=== PATIENT | female | born 1955 | race Caucasian/White ===

== ENCOUNTER 2019-08-04 11:54 | Day surgery (SDC) | payer BC ==
--- NOTE | 2019-08-04 07:56 | History and Physical - [facility] ---
CHIEF COMPLAINT/HISTORY OF CHIEF COMPLAINT: This patent presents with a history of an intractable lumbar radiculopathy. Due to the failure of therapy, a spinal cord stimulator trial was conducted with 75-85% pain control. Due to the failure of all therapies and the success of the stimulator trial, the patient presents for implantation of a permanent system. PAST MEDICAL HISTORY: Hypertension, sleep apnea, thrombophlebitis, cardiac arrhythmia, and blood disorder. PAST SURGICAL HISTORY: Cervical spine fusion, lumbar spine fusion, pacemaker, defibrillator, and sinus surgery. EMPLOYMENT STATUS: Retired. MEDICATIONS ON ADMISSION: List to be provided. ALLERGIES: TRAZODONE. FAMILY/PSYCHOSOCIAL HISTORY: Social history - Caffeine. Family history - Asthma, coronary artery disease, and hypertension. SYSTEMS REVIEW: The patient is appropriate in no acute distress. The remainder of the systems review is positive for headaches, pacemaker, and defibrillator. PHYSICAL EXAMINATION: Height is 5'7", weight is 200 pounds. No vital signs. HEENT: Within normal limits. LUNGS: Clear. HEART: Rapid and regular. ABDOMEN: Nontender. MUSCULOSKELETAL: Examination of the musculoskeletal system shows the primary pain pattern across the back and into both legs. Ambulation is antalgic. There is mild motor and and sensory weakness into the left lower extremity. NEUROLOGIC: Cranial nerves are intact. IMPRESSION: POST LUMBAR LAMINECTOMY SYNDROME, ICD-10 CODE M96.1 WITH LUMBAR RADICULOPATHY, ICD-10 CODE M54.16 AND M54.17. PLAN: After a successful trial of spinal cord stimulation and the failure of all therapies, she is here for permanent implantation of leads and generator. The procedure will be considered outpatient although an overnight stay will be evaluated. All of the potential risks, side effects, and complications were reviewed and discussed. JOB NUMBER: [id number]
[~2019-08-04 11:54] MED LIST: ACETAMINOPHEN 1,000 MG/100 ML BTL IVPB ONE; CEFAZOLIN 2 Gram 2 GM/50 ML BAG IVPB ONE; FAMOTIDINE 20MG TABLET PO ONE; MECLIZINE 25 MG TABLET PO ONE; METOCLOPRAMIDE 10 MG TABLET PO ONE
[2019-08-04] MEDS ORDERED: PROPOFOL 10 MG/ML VIAL IV ONE (11:55)
[2019-08-04] MEDS ORDERED: FENTANYL PF 100MCG/2ML VIAL IV ONE (11:55)
[2019-08-04] MEDS ORDERED: MIDAZOLAM HCL 2MG/2ML VIAL IV ONE (11:55)
[2019-08-04] MEDS ORDERED: LIDOCAINE 2% MDV (20MG/ML) 20ML VIAL IV ONE (11:55)
[2019-08-04] MEDS ORDERED: 0.9 % SODIUM CHLORIDE 1000ML 1,000 ML IV ONE (12:30)
[2019-08-04] MEDS ORDERED: BUPIVACAINE 0.5% W/EPI MPF 30 ML VIAL SQ ONE (14:29)
[2019-08-04] MEDS ORDERED: LIDOCAINE 1% W/EPI 1:100,000 MDV 20 ML VIAL SQ ONE (14:29)
[2019-08-04] MEDS ORDERED: CEFAZOLIN 1G VIAL IR ONE (14:29)
[2019-08-04] MEDS ORDERED: RINGERS SOLUTION,LACTATED 1,000 ML IV ONE (15:00)
[2019-08-04] MEDS ORDERED: FENTANYL PF 100MCG/2ML VIAL IVP ONE ×2 (15:29→15:42)
[2019-08-04] MEDS ORDERED: OXYCODONE/APAP 10MG-325MG TABLET PO ONE (16:04)
--- NOTE | 2019-08-05 09:12 | Operative Note - [facility] ---
DATE OF SURGERY: 08/04/2019 PREOPERATIVE DIAGNOSIS: LUMBAR RADICULOPATHY, ICD-10 CODE M54.16 AND M54.17. OPERATION: 1. FLUOROSCOPICALLY GUIDED EPIDURAL ACCESS LEFT T11-T12, PLACEMENT OF SPINAL CORD STIMULATOR LEAD 1, [employer] IN[employer] 16, 6-ELECTRODES POSITIONED LEFT OF T6. 2. FLUOROSCOPICALLY GUIDED EPIDURAL ACCESS T12-L1, PLACEMENT OF SPINAL CORD STIMULATOR LEAD 2, [employer], 6-ELECTRODES POSITIONED RIGHT T6. 3. COMPLEX PROGRAMMING OF LEAD 1 OVER TWENTY MINUTES FOLLOWED BY COMPLEX PROGRAMMING OF LEAD 2 OVER TWENTY MINUTES. 4. INCISION, SUBCUTANEOUS DISSECTION, ANCHORING OF LEAD 1 AND LEAD 2 TO THE SUPRASPINOUS FASCIA WITH A [employer] LOCKING ANCHOR NONABSORBABLE SUTURE. 5. INCISION, SUBCUTANEOUS DISSECTION, CREATION OF SUBCUTANEOUS POUCH AT RIGHT POSTERIOR GLUTEAL MARGIN, PLACEMENT OF GENERATOR [employer] PROGRAMMABLE RECHARGEABLE WAVEWRITER. 6. TUNNELLING BETWEEN LEAD POUCH INTO GENERATOR POUCH, EACH LEAD INTERFACED WITH GENERATOR. 7. SECURING GENERATOR TO THE POUCH WITH NONABSORBABLE SUTURE, PLACEMENT OF LEADS INTO THEIR OWN POUCH AND CLOSURE OF BOTH INCISIONS USING STRATAFIX SUTURE 2-0 FASCIA AND 3-0 SKIN. DERMABOND CLOSURE. 8. COMPLEX RECOVERY ROOM PROGRAMMING INTERNAL GENERATOR HOME USE TWO STIMULATORS RECOVERY ROOM TWENTY MINUTES. SURGEON: Odin Urbina D.O. ANESTHESIA: Local sedation. ANESTHESIA PROVIDER: PRASAD Rosario CRNA INDICATION: This patient presents with a history of intractable lumbar radiculopathy. Due to the failure of therapies, a spinal cord stimulator trial was conducted with 75+% pain control. Due to the failure of all therapies and the success of the trial, the patient presents today for implantation of a permanent system. PROCEDURE: Intravenous line, vital sign monitoring, IV sedation, prepped and draped, sterile technique. Under imaging the epidural interspace from the left at T11-T12 and T12-L1 are both identified and marked. The skin was infiltrated using a curved access Epimed needles with loss of resistance the space was accessed at each level, atraumatic. No blood. No CSF. At T11-T12 spinal cord stimulator Lead 1, a [employer] Infinion 16, 6-electrodes was positioned left of T6. The access for the right spinal cord stimulator Lead 2, [employer] In[employer]ion 16, 6-electrodes was positioned right at T6. With the patient awake complex programming of each of the leads over twenty minutes left and twenty minutes right was then performed establishing stimulation pain control through all of the appropriate areas/ She indicated we had control of her primary regions of pain. She was given the option to implant, continue to program, or remove and she opted to implant. She was then re-sedated. The full sterile field was maintained and using local for infiltration, the skin above and below the needles was infiltrated, an incision was made and subcutaneous dissection was conducted to the supraspinous fascia. Each of the leads was then anchored to the supraspinous fascia with a [employer] locking anchor nonabsorbable suture. At the right posterior gluteal margin at a site picked by the patient for the generator the skin was infiltrated, an incision made and subcutaneous dissection was conducted to form a pouch of suitable size and depth for the generator, a [employer] programmable rechargeable WaveWriter. A tunnelling tool was used to carry the leads into the generator pouch and then each lead was interfaced with the generator. Antibiotic irrigation, Bovie for hemostasis at both sites. The generator was placed into its pouch and secured to the posterior fascia with nonabsorbable suture. The leads were placed in their own pouch and then both incisions were closed using Stratafix suture 2-0 fascia and 3-0 skin. A Dermabond closure was then used to approximate both wounds. She was transported to the Recovery Room stable. There are no side effects from the procedure or sedation. When fully awake and alert, complex programming of the internal generator over twenty minutes in the Recovery Room was performed re-establishing stimulation and pain control of all of the appropriate areas. The patient and were instructed on the use of the system, provided information on error messaging and then prepared for discharge. DISCHARGE INSTRUCTIONS: 1. The sites are to remain clean and dry. No showering or bathing in any way that would disrupt dressings. If it happens contact the clinic. 2. Standard medications are resumed including the antibiotic Levaquin 500 mg once a day for fourteen days. 3. Office to contact the patient in 12-24 hours and set up a time in 7-10 days for us to evaluate the sites, until then keep activities low. She will start her blood thinners as per cardiology's protocol. JOB NUMBER: [id number] [facility]
--- NOTE | 2019-08-05 09:20 | RADIOLOGY REPORT ---
EXAMINATION: Thoracolumbar Spine Single View EXAM DATE: 08/04/2019 3:32 PM TECHNIQUE: Frontal view. INDICATION: S/P SCS IMPLANT LEADS AND GENERATOR COMPARISON: No relevant comparison studies ENCOUNTER: Initial FINDINGS/IMPRESSION: Spinal cord stimulator with electrode leads projecting over T7-T9 and the last rib is labeled as the 12th. Right lower quadrant generator. No appreciable kinking or interruptions along the radiopaque co urse of the tubing. IVC filter. Lower lumbar hardware. Dictated by: Shanna Ford MD on 08/05/2019 9:16 AM. .
== END 2019-08-04 16:35 | disposition home or self-care (01) ==
LOC: SUR 11:54
PROVIDERS: ATTEND Pain Medicine Interventional Pain Medicine
DX: M54.16 Radiculopathy, lumbar region (principal); M54.17 Radiculopathy, lumbosacral region; I10 Essential (primary) hypertension; I45.81 Long QT syndrome; G25.81 Restless legs syndrome; D64.9 Anemia, unspecified; Z95.810 Presence of automatic (implantable) cardiac defibrillator; Z95.0 Presence of cardiac pacemaker; G62.9 Polyneuropathy, unspecified
CPT/HCPCS: 63650; 63685; 01936; 95972; 85002; 72020; C1883; C1820; J3010; J0690; J7030; J7120